=== PATIENT | female | born 1995 | race Caucasian/White ===

== ENCOUNTER → 2016-10-22 | Outpatient (CLI) | payer BC, OTHER ==
[2015-05-08 11:31] VITALS: BP 108/56
--- NOTE | 2016-10-23 08:10 | MRI ---
HISTORY: Dizziness, headaches Study: MRI brain with and without contrast Comparison: None Technique: Multi planar multi sequence pre and post-contrast imaging and diffusion imaging Findings: The ventricles are normal in size shape and position. There are no areas of abnormal diffusion restr iction identified. There are no areas of signal abnormality or abnormal enhancement to suggest recen t or remote CVA, hemorrhage, mass lesion, inflammation, demyelination, or extra-axial fluid collecti on. No definite vascular abnormality or vascular anomaly is identified. Appropriate vascular flow vo ids are identified. The CP angles are clear. The sinuses are clear. IMPRESSION: No significant abnormality identified Reported By:
== END ==
LOC: RAD 15:06
PROVIDERS: ATTEND Nurse Practitioner Family
DX: R51 Headache (principal); R42 Dizziness and giddiness
CPT/HCPCS: 70553